=== PATIENT | male | born 1975 | race Caucasian/White ===

== ENCOUNTER 2017-07-05 05:42 | Emergency (ER) | payer SELFPAY ==
[~2017-07-05] VITALS: Ht 162.6 cm; Wt 70.3 kg
[2017-07-05 05:51] VITALS: BP 131/83
--- NOTE | 2017-07-05 06:05 | NUR ---
PER CLINICAL PROGRAMMER ADMITTING PT LEFT [facility]
== END 2017-07-05 06:06 | disposition left against medical advice (07) ==
LOC: ER 05:43
DX: Z53.21 Procedure and treatment not carried out due to patient leaving prior to being seen by health care provider (principal)
CPT/HCPCS: A4606; Z7610